=== PATIENT | male | born 1965 | race Two or more races ===

== ENCOUNTER 2019-04-19 20:41 | Emergency (ER) | payer SELFPAY ==
[~2019-04-19] VITALS: Ht 182.9 cm; Wt 122.5 kg
[2019-04-19 23:11] LABS: Basophils # (auto) 0 uL; Basophils % (auto) 0.3 % (0.0-2.0); Eosinophils # (auto) 0.2 uL; Eosinophils % (auto) 1.5 % (0.0-7.0); Hematocrit 43.2 % (41.0-53.0); Hemoglobin 15.2 g/dL (13.5-17.5); Lymphocytes # (auto) 2.3 uL; Lymphocytes % (auto) 21.7 % (10.0-50.0); Mean Corpuscular Volume 88.4 fL (80.0-100.0); Monocytes # (auto) 0.7 uL; Monocytes % (auto) 6.5 % (0.0-12.0); Neutrophils # (auto) 7.3 uL; Platelet Count (auto) 337 10^3/uL (140-450); Red Blood Cells 4.89 10^6/uL (4.5-5.90); Red Cell Distribution Width 13.3 % (11.8-14.3); White Blood Cell 10.4 10^3/uL (4.4-10.8)
[2019-04-19 23:28] LABS: Albumin 3.8 g/dL (3.4-5.0); Calcium 9.5 mg/dL (8.5-10.1); Potassium 3.6 mmol/L (3.5-5.1)
[2019-04-19 23:31] LABS: BUN/Creatinine Ratio 15.5
[2019-04-19 23:34] LABS: INR 1.02 (0.9-1.15); Partial Thromboplastin Time 27.6 sec (23.64-32.05)
[2019-04-19 23:41] LABS: Bilirubin, Total 0.4 mg/dL (0.2-1.0); Total Protein 7.5 g/dL (6.4-8.2)
[2019-04-20 00:05] VITALS: BP 135/88
== END 2019-04-20 00:06 | disposition home or self-care (01) ==
LOC: ER 20:43
DX: R04.0 Epistaxis (principal); E11.9 Type 2 diabetes mellitus without complications; I10 Essential (primary) hypertension; Z86.73 Personal history of transient ischemic attack (TIA), and cerebral infarction without residual deficits; Z98.61 Coronary angioplasty status
CPT/HCPCS: 36415; 80053; 85025; 85610; 85730